=== PATIENT | female | born 1965 | race Hispanic/Latino ===

== ENCOUNTER 2017-09-16 07:19 | Observation (INO) | payer SELFPAY ==
[2017-09-16 07:45] LABS: #Basophils 0.1 thou/uL (0.0-0.2); #Eosinphils 0.1 thou/uL (0.0-0.7); #Lymphocytes 2.4 thou/uL (1.20-3.40); #Monocytes 0.7 thou/uL (0.11-0.59); #Neutrophils 4.9 thou/uL (1.40-6.50); %Basophils 1.3 % (0.0-1.0); %Eosinophils 0.7 % (0.0-10.0); %Lymphocytes 29.6 % (21.0-51.0); %Monocytes 8.7 % (0.0-10.0); %Neutrophils 59.8 % (42.0-75.0); Hemoglobin 16.5 g/dL (12.0-16.0); Mean Corpuscular HGB CONC 33.6 g/dL (32.0-36.0); Mean Corpuscular Hemoglobin 34.2 pg (27.0-31.0); Mean Platelet Volume 8.1 fL (7.4-10.4); Platelet Count 182 thou/uL (130-400); RBC Distribution Width 12.1 % (11.5-14.5); Red Blood Cell (RBC) Count 4.82 mill/uL (4.20-5.40); White Blood Cell (WBC) Count 8.2 thou/uL (4.8-10.8)
[2017-09-16 08:02] LABS: ALT (SGPT) 25 U/L (8-55); AST (SGOT) 40 U/L (5-34); Albumin 5.1 g/dL (3.5-5.0); Alkaline Phosphatase 103 U/L (40-150); Anion Gap 17 mmol/L (10-20); BUN (Urea Nitrogen) 6 mg/dL (9.8-20.1); CK (CPK) 31 U/L (29-168); Calc. Creatinine Clearance 0 mL/min (70-130); Calcium 10.8 mg/dL (7.8-10.44); Carbon Dioxide 24 mmol/L (22-29); Chloride 93 mmol/L (98-107); Estimated GFR-MDRD 72; Globulin 4.2 g/dL (2.4-3.5); Glucose 148 mg/dL (70-105); Protein, Total 9.3 g/dL (6.0-8.3); Sodium 131 mmol/L (136-145)
[2017-09-16 08:06] LABS: CKMB 1.3 ng/mL (0-6.6); Troponin I Less than 0.010 ng/mL (< 0.028)
[2017-09-16] MEDS ORDERED: Potassium Chloride 20 MEQ TAB ONE (09:37)
--- NOTE | 2017-09-16 09:44 | RAD ---
FRONTAL VIEW CHEST: COMPARISON: 05/20/11. INDICATION: Chest pain. FINDINGS: The lungs are clear. No effusion or pneumothorax. Cardiac silhouette is normal in size. IMPRESSION: No focal consolidation. POS: [facility]
[2017-09-16 10:10] LABS: Magnesium 1.8 mg/dL (1.6-2.6); Phosphorus 3.6 mg/dL (2.3-4.7)
[2017-09-16 11:10] LABS: Troponin I 0.021 ng/mL (< 0.028)
[2017-09-16 12:38] VITALS: BMI 23.8
[2017-09-16] MEDS ORDERED: Acetaminophen 325 MG TAB PO PRN (12:50)
[2017-09-16] MEDS ORDERED: Nitroglycerin 0.4 MG TAB (25 Tab Bottle) PO PRN (12:50)
[2017-09-16] MEDS ORDERED: traMADol HCl 50 MG TAB PO PRN (12:53)
[2017-09-16] MEDS ORDERED: Metoprolol Tartrate 25 MG TAB PO SCH (13:15)
[2017-09-16] MEDS ORDERED: Lidocaine 5% Patch TD SCH (13:30)
--- NOTE | 2017-09-16 14:26 | HP ---
DATE OF ADMISSION: 09/16/2017 PRIMARY CARE PROVIDER: None. CHIEF COMPLAINT: "My arm is hurting a lot." HISTORY OF PRESENT ILLNESS: This is a 52-year-old female with history of gestational hypertension, and a presumptive diagnosis in 2012 with hospitalization for Crohn's disease, who presents to the emergency room with the above complaint. The patient reports, over the past 2-3 days, that she has had left-sided neck and arm pain that has been constant and sharp that starts up at the left side of her neck and radiate down her left arm, and in addition, it has a throbbing quality. This morning it affected the left side of her chest , her back as well as worsening of some known right chronic hip pain. She describes the chest pain as pressure when she pushes down on it or when she is lying flat and all the symptoms are worse with twisting or turning to the side. She reports last night was pretty bad, and states that, this morning around 7 , she could not stand it anymore and presented to the emergency room. She denies any shortness of breath, nausea, vomiting, or abdominal pain. She does have some nausea now, but states over the past 2-3 days this has not been present. Aside from changing positions or direct palpation, she denies any other worsening factors, and has had some relief with taking ibuprofen, Aleve, and another [id number] medicine called pain free. The patient reports a history of similar symptoms in the past that have been intermittent; however, none this severe. These symptoms have not been evaluated in the past. She has been away from health care for at least 3 years due to lack of insurance. In the emergency room, the patient evaluated and received aspirin 324 mg, K-Dur 40 mEq, morphine 4 mg, and 500 mL of normal saline and hospitalist called for admission. ALLERGIES: No known drug allergies. CURRENT MEDICATIONS: 1. Ibuprofen as needed. 2. Aleve as needed. 3. [place] 3 occasionally. 4. Nexium 2 tablets averaging every 3 days. 5. [id number] sleeping medicine. PAST MEDICAL HISTORY: 1. Gestational hypertension. Patient denies any diagnosis or treatment outside of . 2. Presumptive diagnosis of Crohn's disease back in 2012, but the patient reports this diagnosis was never established. 3. Chronic right hip pain with history of hip replacement. 4. Decreased mobility secondary to above. PAST SURGICAL HISTORY: Right hip replacement. SOCIAL HISTORY: The patient lives with her 2 daughters, Lisbet and Arianne. She denies any tobacco. She averages alcohol a 6-pack of beer every 3-4 times per week. FAMILY HISTORY: Significant for a brother with coronary disease, who had a bypass at age 55; diabetes; hypertension. REVIEW OF SYSTEMS: Positive for GERD, for which she takes Nexium, depressed mood due to losing a daughter 3 years ago on a fire, worry and difficulty sleeping, bright red blood in her stool and dark black stool, palpitations today in the emergency room, hot flashes, unintentional weight loss of 12 pounds over the past few months, difficulty with her mobility secondary to pain. It is negative for syncope, vomiting, abdominal pain. All remaining review of systems are reviewed and negative. PHYSICAL EXAMINATION: VITAL SIGNS: Her blood pressure 162/109, pulse 113, respirations 20, temperature 98.8, saturation 97% on room air. GENERAL: Awake, alert, responsive, in no apparent distress, able to speak in full sentences. HEENT: Pupils are equal, round, reactive to light. Oral mucosa is pink and moist. NECK: Supple, nontender. Her thyroid feels slightly enlarged, no palpable nodules. HEART: Normal S1 and S2, regular rate and rhythm, no audible murmurs. ABDOMEN: Soft with present bowel sounds. Nontender, nondistended. LUNGS: Clear to auscultation bilateral with good air movement. EXTREMITIES: No clubbing, cyanosis, or edema. VASCULAR: 2+ PT pulses bilateral, 2+ DP pulse on the left. No palpable DP pulse on the right. SKIN: No visible rashes. NEUROLOGIC: Moves arms and legs equally. No focal deficits. PSYCHIATRIC: The patient tearful when discussing the loss of her daughter, euthymic, linear, logical, goal directed thought process, and appears stated age. MUSCULOSKELETAL: Tenderness to palpation along the left side of the chest wall without palpable defect, along the left trapezius muscle, along the proximal humerus as well as the left biceps, all without palpable defect. LABORATORY DATA: Labs reviewed. 1. CBC: 8.2, 16.5, 49.1, 182. 2. Renal panel: 131, 3.0, 93, 24, 6, 0.83, 148. 3. Hemoglobin A1c of 5. 4. Calcium 10.8. 5. AST 40, ALT 25, alkaline phosphatase 103, total protein 9.3, albumin 5.1. 6. EKG is personally reviewed, sinus rhythm, normal axis, LVH, no ST changes. QTc interval is 475 7. Chest x-ray is personally reviewed, no acute changes. 8. Troponin less than 0.01 and 0.021. ASSESSMENT: 1. Arm, neck, and chest pain that is atypical in nature and has a reproducible component with it, in a patient with elevated blood pressure, family history of early heart disease. 2. Elevated blood pressures and tachycardia of unknown duration. 3. Change in stool, including dark black stool as well as bright red blood per rectum in a patient who is currently on nonsteroidal antinflammatory drugs for both relief of this pain and chronic pain. 4. Prolonged QT interval 5. Chronic right hip pain. 6. Gastroesophageal reflux disease, not optimally controlled. 7. Mood changes, insomnia, and worry. 8. Hyponatremia, mild, unknown if new or baseline. 9. Hypokalemia. 10. Hypercalcemia. 11. Elevated hemoglobin. 12. Elevated protein levels. 13. Regular alcohol use. PLAN: 1. Observation status in the hospital. 2. We will obtain a third troponin, monitor on telemetry, check lipids in the morning. Holding on further aspirin for now given the reported change in her stool, which is concerning for GI bleed. Will start low dose metoprolol to manage heart rate and blood pressure - this will need to be titrated. As I'm uncertain of the duration of elevated blood pressure, want to avoid any significant lowering. Also check TSH. 3. GI consultation and evaluation holding NSAIDs and liquid diet, as I am most concerned about GI bleed per the reported change in her stool. 4. Recheck electrolytes in the morning, patient appears euvolemic. We will hold on any further IV fluids for now. 5. Discussed with patient the need for regular health care, as she has been away from healthcare for the past 3 years. Discussed [facility] as well as [facility] clinics that may be able to help her and the issues that are not currently being addressed, which are the elevated calcium and protein levels, the elevated hemoglobin levels, discussion about mood symptoms and treatment for this. 6. We will obtain an x-ray of her left shoulder. Because of the back complaints, we will also obtain a D-dimer. 7. Treating the pain with Lidoderm patches to the areas that are most painful in her neck and arm, and we will also order tramadol, which has worked for her in the past and morphine p.r.n. 8. Start BID ppi. 9. Monitor for signs/symptoms of alcohol withdrawal. 10. Avoid medications that can prolong QT interval. 11. Deep venous thrombosis prophylaxis. The patient is ambulatory. We will have sequential compression devices. The patient will also need evaluation in the outpatient setting for the unintentional weight loss, in addition to the lack of a right dorsalis pedis pulse (posteroir tibialis is palpable). 12. Gastrointestinal prophylaxis. We will have her on b.i.d. PPI. 13. Code status is FULL and surrogate decision makers are her daughters. 14. I reviewed the plan of care with the patient, in addition holding on a cardiac evaluation as the GI evaluation is most pressing given the atypical nature of her chest pain and the negative troponins. She is aware that the cardiac evaluation may occur in the hospital or may need to be followed up in the outpatient setting, to be determined. She also is aware of the need for outpatient care for the multiple issues listed above. 15. No questions or further needs at end of evaluation. KAYLA
[2017-09-16 14:28] LABS: Troponin I Less than 0.010 ng/mL (< 0.028)
--- NOTE | 2017-09-16 15:28 | RAD ---
THREE VIEWS LEFT SHOULDER: CLINICAL HISTORY: Left shoulder pain. 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 No fracture or dislocation. IMPRESSION: No acute osseous abnormality of the left shoulder. POS: [facility]
[2017-09-16] MEDS ORDERED: Lorazepam 2 MG/ML VIAL SLOW IVP PRN (18:14)
--- NOTE | 2017-09-16 18:14 | PDOC.EVN ---
Event Note - Event Note Event Note: Pt c/o nausea with a prolonged QT interval - hold on zofran and phenergan. Reviewed reglan and contraindicated with GI bleed. Will order very low dose ativan to see if this helps. Lidocaine patches not helping, now with right arm and neck pain - will d/c patches, request heating pad, and order neck xray. Exam - ttp along the right trapezius, upper arm and biceps without palpable defects. Ttp along the right rhomboids and serratus anterior that reproduces pain. Lungs ctab with good air movement, heart normal s1/s2 without audible murmurs. Discussed plan of care with patient and RN, no questions or further needs at end of eval.
[2017-09-16] MEDS ORDERED: Folic Acid 1 MG TAB PO SCH (18:15)
[2017-09-16] MEDS ORDERED: Multivitamin W/ Minerals 1 TAB PO SCH (18:15)
[2017-09-16] MEDS ORDERED: GoLYTELY 4,000 ml Bottle PO SCH (18:30)
[2017-09-16] MEDS: traMADol HCl 50 MG TAB PO PRN (18:35)
--- NOTE | 2017-09-16 18:53 | RAD ---
3 VIEWS CERVICAL SPINE; Date: 09/16/17 COMPARISON: None. HISTORY: Bilateral arm and neck pain. FINDINGS: Three views of the cervical spine show normal height and alignment of the vertebral bodies and interv ertebral discs without fracture or subluxation. No significant degenerative changes are seen. No prev ertebral soft tissue swelling is seen. IMPRESSION: No significant osseous abnormality. POS: [facility]
[2017-09-16] MEDS: Metoprolol Tartrate 25 MG TAB PO SCH (20:23)
[2017-09-16] MEDS ORDERED: Lidocaine Patch Removal TOP SCH (21:00)
--- NOTE | 2017-09-16 21:11 | CON ---
DATE OF CONSULTATION: 09/16/2017 CHIEF COMPLAINT: Chest pain. HISTORY OF PRESENT ILLNESS: Ms. Bucio is a 52-year-old woman who presented to the emergency room w ith chest pain. She initially started more with sharp pain in her left upper chest that radiated to her left arm and the pain has moved more towards her right arm. This afternoon, the pain also radiat es through to her right lower back. She has had nausea with it, but no vomiting. She has been evalu ated by the ER and hospitalist physicians and ruled out for myocardial infarction by troponins. The hospitalist felt that this is very unlikely cardiovascular and consulted GI for further evaluation. The patient reports black stools for the last 3 days. She has one black stool to 2 black stools per day, which are formed. She has also had intermittent red blood mixed with the stool that will turn t o water red around once per month. She gets heartburn a couple times per week. She takes 2 over-the -counter Nexium every 3 days, which in general controls her heartburn pretty well. She tends to get more nocturnal heartburn. She takes ibuprofen 800 mg at a time once or twice per day for chronic hip pain. PAST MEDICAL HISTORY: Gastroesophageal reflux. PAST SURGICAL HISTORY: Right hip replacement and cautery of nosebleed. FAMILY HISTORY: Negative for GI malignancy. She had a brother who had bypass surgery at age 55. SOCIAL HISTORY: She drinks 2-6 beers most days. No smoking for the last year. She smoked intermitt ently for 30 years prior to that. No drugs. ALLERGIES: No known drug allergies. MEDICATIONS PRIOR TO ADMISSION: Ibuprofen once or twice daily 800 mg, Nexium 2 tablets every few day s. She takes omega 3 occasionally. REVIEW OF SYSTEMS: Negative x10 systems reviewed except as stated in the history of present illness. PHYSICAL EXAMINATION: VITAL SIGNS: Temperature 98.1, pulse 74, blood pressure 140/97. GENERAL: She is in no acute distress, alert and oriented x3. HEENT: Eyes have no scleral icterus. Oropharynx is clear without lesions. NECK: No cervical or supraclavicular lymphadenopathy. LUNGS: Clear to auscultation bilaterally. HEART: Regular rate and rhythm without murmur. ABDOMEN: Soft. She is tender in the right upper quadrant with inspiration. This reproduces the asad n that radiates through to her back and up towards her chest. Her abdomen is otherwise soft and nont dave. Bowel sounds are present. EXTREMITIES: No lower extremity edema. LABORATORY DATA: TSH 1.9, hemoglobin A1c 5, creatinine 0.83, bilirubin 1, AST 40, ALT 25, alkaline p hosphatase 103, albumin 5.1. IMPRESSION: 1. Chest pain that radiates through to her back associated with right upper quadrant tenderness that reproduces pain on exam. This pain seems to be most likely gallbladder in origin. 2. Gastrointestinal bleeding history. She has had black stools for the last 3 days and also reports red bloody stools around once per month. She takes ibuprofen 800 mg once or twice daily. We will r ule out peptic ulcer disease. She has never had a colonoscopy. Rule out inflammatory bowel disease or neoplastic process. 3. Alcohol abuse. She drinks 2-6 beers most days. Her AST is elevated. RECOMMENDATIONS: 1. We will prep with GoLYTELY this evening. Plan EGD and colonoscopy tomorrow to evaluate bleeding. Her hemoglobin is normal at 16.5. Her white count is normal. 2. Perform ultrasound of the gallbladder in the morning prior to endoscopy. She has had beef broth and ice cream couple hours ago, so I will not perform the ultrasound this evening.
[2017-09-17] MEDS: traMADol HCl 50 MG TAB PO PRN ×3 (02:54→14:29)
[2017-09-17 05:04] LABS: #Basophils 0.1 thou/uL (0.0-0.2); #Eosinphils 0.1 thou/uL (0.0-0.7); #Lymphocytes 2.4 thou/uL (1.20-3.40); #Monocytes 0.7 thou/uL (0.11-0.59); #Neutrophils 4.9 thou/uL (1.40-6.50); %Basophils 0.8 % (0.0-1.0); %Eosinophils 0.8 % (0.0-10.0); %Lymphocytes 29.4 % (21.0-51.0); %Neutrophils 60.9 % (42.0-75.0); Hemoglobin 15.9 g/dL (12.0-16.0); Mean Corpuscular HGB CONC 35.1 g/dL (32.0-36.0); Mean Corpuscular Hemoglobin 36.3 pg (27.0-31.0); Mean Platelet Volume 8.4 fL (7.4-10.4); Platelet Count 177 thou/uL (130-400); RBC Distribution Width 12.1 % (11.5-14.5); Red Blood Cell (RBC) Count 4.38 mill/uL (4.20-5.40); White Blood Cell (WBC) Count 8.1 thou/uL (4.8-10.8)
[2017-09-17 05:26] LABS: Cardiac Risk 2.7 (Less than 4.5)
[2017-09-17] MEDS ORDERED: Ondansetron HCl/PF 4 MG/2 ML Vial SLOW IVP PRN (08:32)
[2017-09-17] MEDS: Metoprolol Tartrate 25 MG TAB PO SCH (08:41)
[2017-09-17] MEDS ORDERED: Folic Acid 1 MG TAB PO SCH (09:00)
[2017-09-17] MEDS ORDERED: Multivitamin W/ Minerals 1 TAB PO SCH (09:00)
[2017-09-17] MEDS ORDERED: Lidocaine 5% Patch TD SCH (09:00)
--- NOTE | 2017-09-17 09:20 | ULT ---
RIGHT UPPER QUADRANT ULTRASOUND: HISTORY: A 52-year-old female with a history of right upper quadrant tenderness and pain. FINDINGS: Coarse, increased liver echogenicity, consistent with a nonspecific, diffuse hepatic parenchymal proc ess. No overt gallstones or pericholecystic fluid. Common bile duct 0.3 cm. No intrahepatic ductal dilatation. The visualized pancreas and right kidney are unremarkable. IMPRESSION: Coarse liver echogenicity, evidence for fatty change or other nonspecific diffuse hepatic parenchymal process, stable from 05/20/2011. No evidence of gallstones or ductal dilatation. POS: [facility]
[2017-09-17] MEDS ORDERED: Lorazepam 2 MG/ML VIAL SLOW IVP PRN (10:23)
[2017-09-17] MEDS ORDERED: HYDROmorphone 2 MG/ML VIAL SLOW IVP PRN (12:18)
[2017-09-17] MEDS ORDERED: Meperidine HCl/PF 25 MG/ML VIAL SLOW IVP PRN (12:18)
[2017-09-17] MEDS ORDERED: Ondansetron HCl/PF 4 MG/2 ML Vial IVP PRN (12:18)
[2017-09-17] MEDS ORDERED: Promethazine HCl 25 MG/ML VIAL SLOW IVP PRN (12:18)
[2017-09-17] MEDS ORDERED: Morphine Sulfate 2 MG/ML SYRINGE SLOW IVP PRN (12:18)
[2017-09-17] MEDS ORDERED: Lidocaine 1% PF 5 ML VIAL ONE (15:02)
[2017-09-17] MEDS ORDERED: PROPOFOL 200 MG/20 ML VIAL ONE (15:02)
[2017-09-17 15:41] VITALS: BP 164/86; TEMP 97.7
--- NOTE | 2017-09-17 17:28 | OP ---
DATE OF PROCEDURE: 09/17/2017 PROCEDURE PERFORMED: Esophagogastroduodenoscopy with biopsy and colonoscopy with snare polypectomy. PREOPERATIVE DIAGNOSIS: Chest pain and gastroesophageal reflux and melena and hematochezia. OPERATIVE NOTE: Informed consent was obtained from the patient. She was sedated with total intraven ous anesthesia. The bite block was placed and the endoscope was advanced easily to the second portio n of the duodenum and retroflexion was performed in the stomach. The esophagus showed salmon-colored mucosa suggestive of Haddad's esophagus from 36-40 cm. Biopsies were obtained in four quadrants at 37 and 39 cm. The GE junction was normal. The stomach was normal including retroflexed views. The pylorus and first and second portions of the duodenum were normal. The air was suctioned from the s tomach. The patient was turned around. Rectal exam was performed and was normal. The preparation q uality was good. The colonoscope was advanced to the terminal ileum without difficulty. The mucosa of the terminal ileum was normal. The ileocecal valve and appendiceal orifice were clearly identifie d. There was mild to moderate diverticulosis of the sigmoid and descending colon. Two polyps measuring 5 mm were removed from the descending colon by cold snare polypectomy. The yeyo maira of the colonic mucosa was normal. Retroflexed views in the rectum were unremarkable. IMPRESSION: 1. [place]-colored mucosa in the distal esophagus from 36-40 cm suggestive of Haddad's esophagus. B iopsies obtained to confirm. 2. Otherwise normal esophagogastroduodenoscopy. 3. Diverticulosis of the left colon. 4. Two polyps measuring 5 mm were removed from the descending colon by cold snare. 5. Otherwise normal colonoscopy. 6. The intermittent hematochezia occurs around once per month is consistent with mild hemorrhoidal b leeding. The reported black stools over the last 3 days were unlikely a true melena. Her hemoglobin remains normal at 15.9. There is no evidence of a bleeding source by this exam. 7. The cause of her chest pain may be reflux related. 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 Ultrasound of the gallbladder was negative for gallstones. If she has persistent pain that locali zes more to the right upper quadrant and is affected by eating, then consider HIDA scan. With atypic al symptoms which are primarily chest pain at this point and left shoulder pain, I will hold off orde ring a HIDA scan without more compelling gallbladder-type symptoms. RECOMMENDATIONS: 1. Await histopathology. 2. Repeat EGD in 1 year if Haddad's esophagus is confirmed. 3. Repeat colonoscopy in 5 years if either polyp is an adenoma. Repeat in 10 years if both polyps a re hyperplastic and repeat in 3 years if either polyp has a villous component. 4. Proton pump inhibitor daily every day. 5. I will sign off for now. Please call if GI can be of service.
== END 2017-09-17 19:05 | disposition home or self-care (01) ==
LOC: ERS 07:19 → 2SW 10:48
PROVIDERS: ADMIT Internal Medicine; ATTEND Internal Medicine
PROC: 0DBM8ZX Excision of Descending Colon, Via Natural or Artificial Opening Endoscopic, Diagnostic (ICD-10-PCS; principal; 2017-09-17)
PROC: 0DB58ZX Excision of Esophagus, Via Natural or Artificial Opening Endoscopic, Diagnostic (ICD-10-PCS; 2017-09-17)
DX: D12.4 Benign neoplasm of descending colon (principal); K22.70 Barrett's esophagus without dysplasia; K21.9 Gastro-esophageal reflux disease without esophagitis; I10 Essential (primary) hypertension; E87.1 Hypo-osmolality and hyponatremia; E87.6 Hypokalemia; E83.52 Hypercalcemia; R03.0 Elevated blood-pressure reading, without diagnosis of hypertension; Z79.899 Other long term (current) drug therapy
CPT/HCPCS: 36415; 71045; 72040; 76705; 80053; 80061; 82550; 82553; 83036; 83735; 84100; 84443; 84484; 85025; 85379; 88305; 88312; 88313; 93005; 94760; 96361; 96374; 96375; G0378; J2001; J2060; J2270; J2405; J2704

== ENCOUNTER 2017-10-02 13:50 | Inpatient (IN) | payer SELFPAY ==
[2017-10-02] MEDS ORDERED: Ondansetron HCl/PF 4 MG/2 ML Vial ONE ×3 (14:04→20:43)
[2017-10-02 14:32] LABS: #Basophils 0.1 thou/uL (0.0-0.2); #Lymphocytes 0.8 thou/uL (1.20-3.40); #Monocytes 0.5 thou/uL (0.11-0.59); #Neutrophils 9.6 thou/uL (1.40-6.50); %Basophils 0.5 % (0.0-1.0); %Eosinophils 0.2 % (0.0-10.0); %Lymphocytes 6.9 % (21.0-51.0); %Monocytes 4.8 % (0.0-10.0); %Neutrophils 87.7 % (42.0-75.0); Mean Corpuscular Hemoglobin 35.6 pg (27.0-31.0); Mean Platelet Volume 8.7 fL (7.4-10.4); Platelet Count 128 thou/uL (130-400); RBC Distribution Width 11.7 % (11.5-14.5); Red Blood Cell (RBC) Count 4.48 mill/uL (4.20-5.40)
[2017-10-02 14:51] LABS: ALT (SGPT) 33 U/L (8-55); AST (SGOT) 65 U/L (5-34); Albumin 5.2 g/dL (3.5-5.0); Alkaline Phosphatase 107 U/L (40-150); Anion Gap 26 mmol/L (10-20); BUN (Urea Nitrogen) 6 mg/dL (9.8-20.1); Bilirubin, Total 1.9 mg/dL (0.2-1.2); Calc. Creatinine Clearance 0 mL/min (70-130); Calcium 10.8 mg/dL (7.8-10.44); Carbon Dioxide 16 mmol/L (22-29); Chloride 100 mmol/L (98-107); Estimated GFR-MDRD 62; Globulin 4.4 g/dL (2.4-3.5); Glucose 217 mg/dL (70-105); Potassium 3.2 mmol/L (3.5-5.1); Protein, Total 9.6 g/dL (6.0-8.3); Sodium 139 mmol/L (136-145)
[2017-10-02] MEDS ORDERED: ISOVUE-370 76%-LOCM 1 ML ONE (14:56)
[2017-10-02 15:21] LABS: CK (CPK) 195 U/L (29-168); Lipase 23 U/L (8-78)
--- NOTE | 2017-10-02 15:24 | RAD ---
FRONTAL VIEW CHEST: Indication: Chest pain. Comparison: 09-16-17 FINDINGS: The lungs are clear. No free air beneath the hemidiaphragms. Cardiac silhouette is normal in size. Os seous structures are intact. IMPRESSION: No focal consolidation. POS: [facility]
[2017-10-02 15:25] LABS: CKMB 4.1 ng/mL (0-6.6); Troponin I Less than 0.010 ng/mL (< 0.028)
[2017-10-02] MEDS ORDERED: Lorazepam 2 MG/ML VIAL ONE ×2 (15:27→22:42)
[2017-10-02] MEDS ORDERED: hydrALAZINE 20 MG/ML VIAL ONE (15:28)
[2017-10-02] MEDS ORDERED: Nitroglycerin 0.4 MG TAB (25 Tab Bottle) ONE ×2 (15:28)
[2017-10-02] MEDS ORDERED: Morphine 4 MG/ML VIAL ONE (16:58)
[2017-10-02] MEDS ORDERED: Promethazine HCl 25 MG SUPP ONE (17:47)
[2017-10-02] MEDS ORDERED: Nitroglycerin 2% Ointment 1 INCH/1 GM Packet ONE (18:32)
[2017-10-02 20:30] LABS: Bilirubin Negative (Negative); Blood, Urine Negative (Negative); Glucose, Urine (Dipstick) Negative (Negative); Leukocyte Negative (Negative); Nitrite Negative (Negative); Protein, Urine (Dipstick) 100 mg/dL (Neg-Trace); Specific Gravity, Urine 1.025 (1.005-1.030); Urobilinogen 0.2 mg/dL (0.2-1.0)
[2017-10-02 20:31] LABS: Clarity CLEAR (Clear)
[2017-10-02 20:32] LABS: Bacteria/HPF None Seen HPF (None Seen); Hyaline Casts/LPF NONE SEEN LPF (0-3 Hyaline); RBC/HPF None Seen HPF (0-3); Squamous Epithelial 0-3 HPF (0-3); WBC/HPF None Seen HPF (0-3)
[2017-10-02] MEDS ORDERED: HYDROcodone/Acetaminophen 5/325 mg Tablet ONE (20:43)
[2017-10-02 22:07] LABS: INR-International Normal Ratio 1.2; Prothrombin Time 15.2 SEC (12.0-14.7)
[2017-10-02 22:08] LABS: PTT 26.9 SEC (22.9-36.1)
--- NOTE | 2017-10-02 22:16 | CT ---
CT ANGIOGRAM OF THE CHEST 10/02/16 HISTORY: Tachycardia, dizziness. Left upper chest pain. COMPARISON: None. TECHNIQUE: CT angiogram of the chest is performed in the axial plane. Three dimensional reformatted images are s ubmitted for interpretation. FINDINGS: The trachea and central bronchi are patent. No consolidation. No pleural effusion. No pneumothorax. No mediastinal mass, lymphadenopathy, or hematoma. Heart size is within normal limits. No significant pericardial fluid. The thoracic aorta and upper abdominal aorta have an overall normal caliber. No p eriaortic fat stranding. There is nonspecific enhancement and fluid in the thoracic esophagus. Noneme rgent esophagram or endoscopy is recommended. The visualized upper solid organs are unremarkable. The re is a hypodensity in the mid portion of the pancreatic body measuring 5 mm. There do appear to be s ome splenic varices as well as varies in the left hemiabdomen. There is hypoattenuation of liver due to hepatic steatosis. Adequate contrast opacification of the pulmonary arterial system through the level of the segmental a rteries. No filling defect to suggest thromboembolism. IMPRESSION: 1. No evidence of pulmonary artery embolism to the level of the segmental arteries. 2. Hepatic steatosis. 3. 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 Correlate for portal hypertension . 4. Hypodensity in the mid body of the pancreas measuring 5 mm. Continued surveillance with short term six month follow up imaging utilizing pancreas protocol is recommended. 5. Enhancement of the esophageal mucosa and fluid in the thoracic esophagus. Nonemergent endosco py or esophagram is recommended. POS: [facility]
[2017-10-02] MEDS ORDERED: Lorazepam 2 MG/ML VIAL SLOW IVP PRN (22:44)
[2017-10-02] MEDS ORDERED: Acetaminophen 325 MG TAB PO PRN (23:13)
[2017-10-02] MEDS ORDERED: Senokot 8.6 MG TAB PO PRN (23:13)
[2017-10-02] MEDS ORDERED: Potassium Chloride 20 MEQ in Premix Bag 1 BAG IVPB SCH (23:15)
[2017-10-02] MEDS ORDERED: Ondansetron HCl/PF 4 MG/2 ML Vial IVP PRN (23:15)
[2017-10-02 23:58] LABS: CKMB 3.9 ng/mL (0-6.6); Troponin I 0.015 ng/mL (< 0.028)
[2017-10-03 00:21] LABS: ALT (SGPT) 22 U/L (8-55); AST (SGOT) 45 U/L (5-34); Albumin 4.1 g/dL (3.5-5.0); Alkaline Phosphatase 79 U/L (40-150); Anion Gap 17 mmol/L (10-20); BUN (Urea Nitrogen) 4 mg/dL (9.8-20.1); Bilirubin, Total 1.4 mg/dL (0.2-1.2); Calc. Creatinine Clearance 0 mL/min (70-130); Calcium 8.3 mg/dL (7.8-10.44); Carbon Dioxide 20 mmol/L (22-29); Chloride 103 mmol/L (98-107); Estimated GFR-MDRD Greater than 90; Globulin 3.1 g/dL (2.4-3.5); Glucose 124 mg/dL (70-105); Potassium 2.9 mmol/L (3.5-5.1); Protein, Total 7.2 g/dL (6.0-8.3); Sodium 137 mmol/L (136-145)
[2017-10-03] MEDS: NS 0.9% w/ 40 MEQ KCL 1,000 ML IV SCH ×3 (00:45→23:13)
[2017-10-03 02:00] VITALS: BMI 24.7
[2017-10-03] MEDS: traMADol HCl 50 MG TAB PO PRN ×4 (03:48→21:39)
[2017-10-03 05:42] LABS: ALT (SGPT) 22 U/L (8-55); AST (SGOT) 46 U/L (5-34); Albumin 4.3 g/dL (3.5-5.0); Alkaline Phosphatase 83 U/L (40-150); Anion Gap 14 mmol/L (10-20); BUN (Urea Nitrogen) Less than 4 mg/dL (9.8-20.1); Bilirubin, Total 1.5 mg/dL (0.2-1.2); Calc. Creatinine Clearance 96 mL/min (70-130); Calcium 8.8 mg/dL (7.8-10.44); Carbon Dioxide 24 mmol/L (22-29); Chloride 101 mmol/L (98-107); Estimated GFR-MDRD Greater than 90; Globulin 3.4 g/dL (2.4-3.5); Glucose 94 mg/dL (70-105); Protein, Total 7.7 g/dL (6.0-8.3); Sodium 136 mmol/L (136-145)
[2017-10-03 05:46] LABS: Potassium 2.9 mmol/L (3.5-5.1)
--- NOTE | 2017-10-03 06:00 | HP ---
CHIEF COMPLAINT: Nausea, vomiting, generalized weakness. HISTORY OF PRESENT ILLNESS: The patient is a 52-year-old female who just recently was discharged on 09/17/2017 after undergoing an EGD and a colonoscopy for possible melena. At this time, the EGD tootie cated salmon-colored mucosa in the distal esophagus suggestive of Haddad's esophagus. Biopsies were done, also the patient had diverticulosis in the left colon and two polyps measuring 5 mm were remov ed in the descending colon by cold snare. Otherwise, the colonoscopy was normal. Recommendations pe r GI were to repeat EGD in one year and also repeat colonoscopy in 5 years and to continue a PPI abisai y. However, the patient presents to the hospital today with complaints of left arm pain which she spencer d in her previous admission and also nausea and vomiting x1 day. Patient's who is at the bed side states that this is her 3rd year anniversary of her daughter passing away at this time of the ye ar, patient has been very depressed. She has not been eating very much or drinking anything since . Patient also states that she drinks heavily; however, yesterday she had only 2-3 beers. Patie nt stated that she woke up this morning, felt dizzy, felt that she was sweaty all over, felt hot and cold and then started having nausea and multiple bouts of emesis. The patient states that she did spencer ve some chest tightness, also denies any diarrhea or any severe abdominal pain. Patient states that she did not recall eating out anywhere. PAST MEDICAL HISTORY: 1. Gestational hypertension. 2. Patient was diagnosed with Crohn's disease back in 04/2012, but the patient reports this diagnosi s was never established. 3. Chronic right hip pain with a history of right hip replacement. PAST SURGICAL HISTORY: She has had a right hip replacement. SOCIAL HISTORY: The patient lives with her daughter and and she normally drinks about 6 pack of beer every 3-4 times a week; however, recently she has been drinking more given the fact that she has been very depressed recently. FAMILY HISTORY: Significant for a brother with coronary artery disease who had a bypass at the age o f 55 and diabetes and hypertension. REVIEW OF SYSTEMS: All negative except for the ones mentioned above in the HPI. PHYSICAL EXAMINATION: VITAL SIGNS: As of the following temperature of 97.7, heart rate of 70, 16, 98, 164/86. GENERAL: She is awake, alert, oriented x3. HEENT: Appears very dehydrated mucous membranes. Sclerae is nonicteric. CARDIOVASCULAR: S1, S2 present. Sinus tachycardia. No murmurs are heard. LUNGS: Clear to auscultation. Rhonchi and wheezes noted. ABDOMEN: Obese. Bowel sounds are present x2. She does have pain upon palpation around her right lo wer quadrant area and some epigastric area. EXTREMITIES: No edema. Pedal pulses are present x2. NEUROLOGIC: Neurological kelsey, no deficits noted. MUSCULOSKELETAL: She does have good range of motion in her left shoulder. There is no numbness or t ingling of her left shoulder and no pain upon palpation around the left shoulder joint area. LABORATORY DATA: As of the following; WBCs of 11.0, hemoglobin of 15.0, hematocrit 45.7, platelets o f 128. Chemistry: Sodium of 137, potassium of 3.2, anion gap of 26, BUN of 6, creatinine 0.94. Her lactic acid was 7.5, sugar of 217, calcium of 10.8. Her bilirubin total was 1.9, AST was 65, ALT wa s normal and her CK was 195. Troponin x1 was negative. Lipase was 23. Her PT was 15.2, INR was nor mal and D-dimer was slightly elevated. ASSESSMENT AND PLAN: The patient is a 52-year-old female who initially presented to the hospital wit h multiple complaints including nausea, vomiting and generalized weakness. 1. Gap metabolic acidosis, most likely secondary to starvation ketosis is a possibility. The patien t received 3 liters of normal saline and her repeat BNP resolves the anion gap. However, she does spencer ve some non-anion gap metabolic acidosis now. The patient has not been eating or drinking for the wv st 3 days per and this could be most likely secondary to starvation. 2. Sinus tachycardia. This is most likely secondary to patient's dehydration. 3. Lactic acidosis. This again could be secondary to dehydration. I do not believe at this time haylie walton has any acute infection going on. She does not appear toxic. Does not have leukocytosis. [facility] x-ray does not indicate any acute abnormalities and her urine appears pretty benign. 4. Alcohol use. Patient has been drinking a lot of alcohol. This could be possible withdrawal give n the fact that she was very hypertensive and very tachycardic. We will start patient on an ARNEL prot ocol. Also give her Ativan p.r.n. as needed. 5. Nausea, vomiting, and some abdominal pain, this could again all be secondary to dehydration versu s possible gallbladder etiology. The patient did have an abdominal x-ray done on 09/17/2017 which in dicated she had coarse liver echogenicity, evidence of fatty changes, but no evidence of gallstones o r ductal dilation was noted and the patient did have an EGD and colonoscopy which did not indicate an y significant etiology besides the Haddad's on the EGD. 6. Deep venous thrombosis prophylaxis. We will put patient on subcu heparin. 7. Depression. The patient appears to be very depressed per , given the fact that the patien t's daughter 3 years ago during this time and we will continue supportive therapy.
[2017-10-03] MEDS ORDERED: Potassium Chloride 20 MEQ TAB PO SCH (06:15)
[2017-10-03 06:31] LABS: #Lymphocytes 1.6 thou/uL (1.20-3.40); #Monocytes 0.7 thou/uL (0.11-0.59); #Neutrophils 5.1 thou/uL (1.40-6.50); %Basophils 0.3 % (0.0-1.0); %Eosinophils 0.1 % (0.0-10.0); %Lymphocytes 21.8 % (21.0-51.0); %Monocytes 8.9 % (0.0-10.0); %Neutrophils 68.8 % (42.0-75.0); Hemoglobin 13.5 g/dL (12.0-16.0); Mean Corpuscular HGB CONC 34.7 g/dL (32.0-36.0); Mean Corpuscular Hemoglobin 35.2 pg (27.0-31.0); Mean Platelet Volume 8.5 fL (7.4-10.4); PLT Morphology Comment Appears Decreased; Platelet Count 82 thou/uL (130-400); RBC Distribution Width 11.9 % (11.5-14.5); Red Blood Cell (RBC) Count 3.84 mill/uL (4.20-5.40); White Blood Cell (WBC) Count 7.5 thou/uL (4.8-10.8)
[2017-10-03] MEDS: Enoxaparin Sodium 40 MG/0.4 ML SYRINGE SC SCH (09:23)
[2017-10-03] MEDS: Famotidine/PF 20 mg/2ml Vial SLOW IVP SCH ×2 (09:44→21:34)
[2017-10-03] MEDS ORDERED: Magnesium Sulfate 2 GM in Sodium Chloride 0.9% 100 ML IVPB SCH (11:45)
[2017-10-03] MEDS ORDERED: cloNIDine 0.1 MG TAB PO PRN (11:47)
[2017-10-03 12:25] LABS: Anion Gap 12 mmol/L (10-20); BUN (Urea Nitrogen) Less than 4 mg/dL (9.8-20.1); Calc. Creatinine Clearance 105 mL/min (70-130); Calcium 8.6 mg/dL (7.8-10.44); Carbon Dioxide 22 mmol/L (22-29); Chloride 103 mmol/L (98-107); Estimated GFR-MDRD Greater than 90; Glucose 110 mg/dL (70-105); Potassium 3.4 mmol/L (3.5-5.1); Sodium 134 mmol/L (136-145)
[2017-10-03] MEDS ORDERED: Potassium Chloride 40 MEQ in Sodium Chloride 0.9% 250 ML 250 ML IVPB SCH (12:45)
--- NOTE | 2017-10-03 21:20 | PDOC.EVN ---
Event Note - Event Note Event Note: Record reviewed. Patient examined. Doing better already. Discussed her alcohol abuse. She does have follow up options where she can get some help with this. Stable otherwise. Replete the potassium.
[2017-10-03] MEDS: Metoprolol Tartrate 25 MG TAB PO SCH (21:34)
[2017-10-04] MEDS: traMADol HCl 50 MG TAB PO PRN ×2 (01:19→09:21)
[2017-10-04 05:56] LABS: Anion Gap 12 mmol/L (10-20); BUN (Urea Nitrogen) Less than 4 mg/dL (9.8-20.1); Calc. Creatinine Clearance 100 mL/min (70-130); Calcium 9.1 mg/dL (7.8-10.44); Carbon Dioxide 23 mmol/L (22-29); Chloride 104 mmol/L (98-107); Estimated GFR-MDRD Greater than 90; Glucose 91 mg/dL (70-105); Sodium 135 mmol/L (136-145)
[2017-10-04 05:57] LABS: #Basophils 0.1 thou/uL (0.0-0.2); #Eosinphils 0.1 thou/uL (0.0-0.7); #Lymphocytes 1.6 thou/uL (1.20-3.40); #Monocytes 0.4 thou/uL (0.11-0.59); %Basophils 1.1 % (0.0-1.0); %Lymphocytes 31.5 % (21.0-51.0); %Monocytes 6.9 % (0.0-10.0); %Neutrophils 58.4 % (42.0-75.0); Hemoglobin 13.3 g/dL (12.0-16.0); Mean Corpuscular HGB CONC 35.2 g/dL (32.0-36.0); Mean Corpuscular Hemoglobin 36.2 pg (27.0-31.0); Mean Platelet Volume 8.5 fL (7.4-10.4); Platelet Count 74 thou/uL (130-400); RBC Distribution Width 11.8 % (11.5-14.5); Red Blood Cell (RBC) Count 3.67 mill/uL (4.20-5.40); White Blood Cell (WBC) Count 5.2 thou/uL (4.8-10.8)
[2017-10-04] MEDS ORDERED: Folic Acid 1 MG TAB PO SCH (09:00)
[2017-10-04] MEDS: Enoxaparin Sodium 40 MG/0.4 ML SYRINGE SC SCH (09:20)
[2017-10-04] MEDS: Metoprolol Tartrate 25 MG TAB PO SCH (09:20)
[2017-10-04] MEDS: Famotidine/PF 20 mg/2ml Vial SLOW IVP SCH (11:08)
[2017-10-04] MEDS: NS 0.9% w/ 40 MEQ KCL 1,000 ML IV SCH (11:09)
[2017-10-04 12:42] VITALS: BP 164/101; TEMP 98.2
== END 2017-10-04 13:15 | disposition home or self-care (01) | DRG 642 ==
LOC: ERS 13:50 → 2NO 21:36
PROVIDERS: ADMIT Internal Medicine; ATTEND Internal Medicine
DX: E88.89 Other specified metabolic disorders (principal); E87.2 Acidosis; T73.0XXA Starvation, initial encounter; M25.561 Pain in right knee; G89.29 Other chronic pain; R00.0 Tachycardia, unspecified; F32.9 Major depressive disorder, single episode, unspecified; F10.10 Alcohol abuse, uncomplicated; Z96.641 Presence of right artificial hip joint; Z83.3 Family history of diabetes mellitus; Z82.49 Family history of ischemic heart disease and other diseases of the circulatory system
CPT/HCPCS: 36415; 71045; 71275; 80048; 80053; 81003; 81015; 82010; 82550; 82553; 83605; 83690; 83735; 83880; 84484; 85025; 85379; 85610; 85730; 87086; 93005; J0360; J1650; J2060; J2270; J2405; J3475; J3480; J7050; S0028

== ENCOUNTER 2019-01-12 01:13 | Emergency (ER) | payer OTHER, SELFPAY ==
[2019-01-12] MEDS ORDERED: Morphine 4 MG/ML VIAL ONE (01:38)
[2019-01-12] MEDS ORDERED: Ondansetron PF 4 MG/2 ML Vial ONE (01:38)
[2019-01-12 01:51] LABS: #Basophils 0.1 thou/uL (0.0-0.2); #Eosinphils 0.1 thou/uL (0.0-0.7); #Lymphocytes 2.2 thou/uL (1.20-3.40); #Monocytes 0.4 thou/uL (0.11-0.59); #Neutrophils 2.9 thou/uL (1.40-6.50); %Basophils 1.1 % (0.0-1.0); %Eosinophils 1.2 % (0.0-10.0); %Lymphocytes 38.7 % (21.0-51.0); %Monocytes 7.4 % (0.0-10.0); %Neutrophils 51.7 % (42.0-75.0); Hemoglobin 14.4 g/dL (12.0-16.0); Mean Corpuscular HGB CONC 35.3 g/dL (32.0-36.0); Mean Corpuscular Hemoglobin 36.7 pg (27.0-31.0); Mean Platelet Volume 9.2 fL (7.4-10.4); Platelet Count 151 thou/uL (130-400); RBC Distribution Width 11.7 % (11.5-14.5); Red Blood Cell (RBC) Count 3.93 mill/uL (4.20-5.40); White Blood Cell (WBC) Count 5.7 thou/uL (4.8-10.8)
[2019-01-12 02:12] LABS: ALT (SGPT) 34 U/L (8-55); AST (SGOT) 55 U/L (5-34); Albumin 4.6 g/dL (3.5-5.0); Alkaline Phosphatase 114 U/L (40-110); Anion Gap 18 mmol/L (10-20); BUN (Urea Nitrogen) 8 mg/dL (9.8-20.1); Bilirubin, Total 0.5 mg/dL (0.2-1.2); Calc. Creatinine Clearance 0 mL/min (70-130); Calcium 9.8 mg/dL (7.8-10.44); Carbon Dioxide 20 mmol/L (22-29); Chloride 109 mmol/L (98-107); Estimated GFR-MDRD 89; Globulin 3.7 g/dL (2.4-3.5); Glucose 127 mg/dL (70-105); Lipase 59 U/L (8-78); Potassium 3.5 mmol/L (3.5-5.1); Protein, Total 8.3 g/dL (6.0-8.3); Sodium 143 mmol/L (136-145)
--- NOTE | 2019-01-12 07:39 | RAD ---
XR Chest 1 View Portable History: Chest pain Comparison: Radiograph October 02, 2017 Findings: Lungs are clear. No pneumothorax or effusion. Cardiac silhouette and mediastinal contours a re within normal limits. No acute osseous normality. Impression: No acute intrathoracic abnormality
== END 2019-01-12 02:39 | disposition home or self-care (01) ==
LOC: ERS 01:13
DX: R10.11 Right upper quadrant pain (principal); I10 Essential (primary) hypertension; F32.9 Major depressive disorder, single episode, unspecified; W18.30XA Fall on same level, unspecified, initial encounter
CPT/HCPCS: 71045; 80053; 83690; 84484; 85025; 85379; 93005; 96361; 96374; 96375; J2270; J2405

== ENCOUNTER 2019-01-25 23:45 | Emergency (ER) | payer SELFPAY ==
[2019-01-26 00:31] LABS: #Basophils 0.1 thou/uL (0.0-0.2); #Eosinphils 0.1 thou/uL (0.0-0.7); #Lymphocytes 3.2 thou/uL (1.20-3.40); #Neutrophils 5.3 thou/uL (1.40-6.50); %Lymphocytes 32.8 % (21.0-51.0); %Monocytes 10.7 % (0.0-10.0); %Neutrophils 54.6 % (42.0-75.0); Hemoglobin 15.5 g/dL (12.0-16.0); Mean Corpuscular HGB CONC 35.3 g/dL (32.0-36.0); Mean Corpuscular Hemoglobin 36.3 pg (27.0-31.0); Mean Platelet Volume 8.8 fL (7.4-10.4); Platelet Count 182 thou/uL (130-400); RBC Distribution Width 11.6 % (11.5-14.5); Red Blood Cell (RBC) Count 4.27 mill/uL (4.20-5.40); White Blood Cell (WBC) Count 9.6 thou/uL (4.8-10.8)
[2019-01-26 00:48] LABS: Bacteria/HPF None Seen HPF (None Seen); Bilirubin Negative (Negative); Blood, Urine Negative (Negative); Clarity Clear (Clear); Glucose, Urine (Dipstick) Normal (Negative); Leukocyte 75 Leu/uL (Negative); Nitrite Negative (Negative); Protein, Urine (Dipstick) Negative (Neg-Trace); RBC/HPF 0-3 HPF (0-3); Squamous Epithelial 0-3 HPF (0-3); Urobilinogen Normal mg/dL (Less than 2); WBC/HPF 0-3 HPF (0-3)
[2019-01-26 00:48] LABS: ALT (SGPT) 38 U/L (8-55); AST (SGOT) 60 U/L (5-34); Albumin 4.7 g/dL (3.5-5.0); Alkaline Phosphatase 102 U/L (40-110); Anion Gap 16 mmol/L (10-20); BUN (Urea Nitrogen) 5 mg/dL (9.8-20.1); Bilirubin, Total 0.7 mg/dL (0.2-1.2); Calc. Creatinine Clearance 0 mL/min (70-130); Calcium 10.6 mg/dL (7.8-10.44); Carbon Dioxide 23 mmol/L (22-29); Chloride 100 mmol/L (98-107); Estimated GFR-MDRD 75; Globulin 3.7 g/dL (2.4-3.5); Glucose 150 mg/dL (70-105); Lipase 37 U/L (8-78); Protein, Total 8.4 g/dL (6.0-8.3); Sodium 136 mmol/L (136-145)
[2019-01-26] MEDS ORDERED: Ondansetron PF 4 MG/2 ML Vial ONE (01:06)
[2019-01-26] MEDS ORDERED: Morphine 4 MG/ML VIAL ONE (01:06)
[2019-01-26] MEDS ORDERED: Orphenadrine Citrate 60 MG/2 ML VIAL SLOW IVP SCH (01:15)
[2019-01-26] MEDS ORDERED: Orphenadrine Citrate 60 MG/2 ML VIAL IM SCH (01:30)
[2019-01-26 03:47] LABS: Troponin I 0.011 ng/mL (< 0.028)
--- NOTE | 2019-01-26 08:36 | CT ---
PRELIMINARY REPORT/[facility]/EMERGENCY AFTER HOURS PROCEDURE: PROCEDURE INFORMATION: Exam: CT Angiography Chest With Contrast Exam date and time: 01/26/2019 12:16 AM Clinical history: 53 years old, female; Patient HX: Er 9. F54 PT reports chest pain that started yest erday, described as pressure and neck pain diffusely that started today TECHNIQUE: Imaging protocol: Computed tomographic angiography of the chest with intravenous contrast. 3D renderi ng: MIP reconstructed images were created and reviewed. COMPARISON: No relevant prior studies available. FINDINGS: Pulmonary arteries: No pulmonary embolism. Aorta: Unremarkable. No aortic aneurysm. No aortic dissection. Lungs: Unremarkable. No consolidation. No masses. Pleural space: Unremarkable. No pneumothorax. No pleural effusion. Heart: Unremarkable. No cardiomegaly. No pericardial effusion. Mediastinum: Small-sized hiatal hernia. Lymph nodes: Unremarkable. No enlarged lymph nodes. Bones/joints: Unremarkable. No acute fracture. Soft tissues: Unremarkable. IMPRESSION: No pulmonary embolism. Thank you for allowing us to participate in the care of your patient. Dictated and Authenticated by: Chidi Marks MD 01/26/2019 12:36 AM Central Time ([place] & [place]) FINAL REPORT CT ANGIOGRAM OF THE CHEST: COMPARISON: 10/02/2017. HISTORY: Pain and dyspnea. TECHNIQUE: CT angiogram of the chest was performed in the axial plane. Three-dimensional reformatted images are submitted for interpretation. FINDINGS: This report is in agreement with the preliminary report by [facility]. No evidence of pulmonary artery embo lism at the level of the segmental arteries. POS: [facility]
[2019-01-26] MEDS ORDERED: Iopamidol-370 76% 500 ML 1 ML ONE (16:41)
== END 2019-01-26 04:35 | disposition home or self-care (01) ==
LOC: ERS 23:45
DX: R10.9 Unspecified abdominal pain (principal); R07.9 Chest pain, unspecified; F32.9 Major depressive disorder, single episode, unspecified; Z79.891 Long term (current) use of opiate analgesic; W17.89XA Other fall from one level to another, initial encounter
CPT/HCPCS: 36415; 71275; 80053; 81003; 81015; 83690; 84484; 85025; 93005; 96361; 96372; 96374; 96375; J2270; J2360; J2405; Q9967

== ENCOUNTER 2019-04-16 11:29 | Outpatient (CLI) | payer MEDICARE ==
--- NOTE | 2019-04-16 13:32 | MMO ---
Bilateral MAMMO Bilat Screen [facility]. CLINICAL HISTORY: Patient is 54 years old and is seen for screening. The patient has no family history of breast cancer. The patient has no personal history of cancer. VIEWS: The views performed were: bilateral craniocaudal with tomosynthesis and bilateral mediolateral oblique with tomosynthesis. FILMS COMPARED: The present examination has been compared to prior imaging studies performed at [facility] on 07/18/2006, 12/14/2015 and 01/20/2016. This study has been interpreted with the assistance of computer-aided detection. MAMMOGRAM FINDINGS: The breasts are heterogeneously dense, which could obscure a lesion on mammography. There are stable benign appearing calcifications seen in both breasts. There are also vascular calcifications. There are no suspicious masses, suspicious calcifications, or new areas of architectural distortion. IMPRESSION: THERE IS NO MAMMOGRAPHIC EVIDENCE OF MALIGNANCY. A ROUTINE FOLLOW-UP MAMMOGRAM IN 1 YEAR IS RECOMMENDED. THE RESULTS OF THIS EXAM WERE SENT TO THE PATIENT. ACR BI-RADS Category 2 - Benign finding MAMMOGRAPHY NOTE: 1. A negative mammogram report should not delay a biopsy if a dominant of clinically suspicious mass is present. 2. Approximately 10% to 15% of breast cancers are not detected by mammography. 3. Adenosis and dense breasts may obscure an underlying neoplasm. Reported by: EBER GONSALVES MD Electonically Signed: [id number]
== END 2019-04-16 11:30 | disposition home or self-care (01) ==
LOC: BICMAMMO 11:29
PROVIDERS: ATTEND Nurse Practitioner Family
DX: Z12.31 Encounter for screening mammogram for malignant neoplasm of breast (principal)
CPT/HCPCS: 77063; 77067

== ENCOUNTER 2019-05-21 12:48 | Outpatient (CLI) | payer MEDICARE ==
--- NOTE | 2019-05-21 14:27 | MRI ---
MRI of thecervical spine: 05/21/2019 COMPARISON:None available HISTORY:Neck pain and bilateral shoulder pain TECHNIQUE: Multiplanar multisequence MR imaging of thecervical spine without contrast Findings:The sagittal STIR imaging demonstrates no focal area of osseous marrow edema. The craniocervical junction, atlantoaxial interspace, and cervicothoracic junction grossly unremarkab le. C2-3: Mild facet and uncovertebral osteophyte formation on the left. No central canal or neural susana inal stenosis. C3-4: No significant central canal or neural foraminal stenosis. C4-5: No significant central canal or neural foraminal stenosis. C5-6: No significant central canal or neural foraminal stenosis. C6-7: No significant central canal or neural foraminal stenosis. C7-T1: No significant central canal or neural foraminal stenosis. No focal area of abnormal signal intensity identified within the cervical cord. IMPRESSION:No significant central canal or neural foraminal stenosis noted within the cervical spine.
== END 2019-05-21 12:49 | disposition home or self-care (01) ==
LOC: MRI 12:48
PROVIDERS: ATTEND Family Medicine
DX: M54.12 Radiculopathy, cervical region (principal)
CPT/HCPCS: 72141

== ENCOUNTER 2019-11-16 01:02 | Emergency (ER) | payer MEDICARE ==
[2019-11-16] MEDS ORDERED: Famotidine/PF 20 mg/2ml Vial ONE (01:11)
[2019-11-16] MEDS ORDERED: diphenhydrAMINE 50 MG/ML VIAL ONE (01:11)
[2019-11-16 01:34] LABS: #Basophils 0.1 thou/uL (0.0-0.2); #Eosinphils 0.1 thou/uL (0.0-0.7); #Lymphocytes 2.3 thou/uL (1.20-3.40); #Monocytes 0.2 thou/uL (0.11-0.59); #Neutrophils 2.5 thou/uL (1.40-6.50); %Eosinophils 1.4 % (0.0-10.0); %Lymphocytes 44.8 % (21.0-51.0); %Neutrophils 49.8 % (42.0-75.0); Hemoglobin 15.2 g/dL (12.0-16.0); Mean Corpuscular HGB CONC 35.9 g/dL (32.0-36.0); Mean Corpuscular Hemoglobin 38.1 pg (27.0-31.0); Mean Platelet Volume 8.6 fL (7.4-10.4); Platelet Count 145 thou/uL (130-400); Red Blood Cell (RBC) Count 3.98 mill/uL (4.20-5.40); White Blood Cell (WBC) Count 5.1 thou/uL (4.8-10.8)
[2019-11-16 01:56] LABS: ALT (SGPT) 27 U/L (8-55); AST (SGOT) 66 U/L (5-34); Albumin 4.5 g/dL (3.5-5.0); Alcohol 338 mg/dL (Less than 10); Alkaline Phosphatase 116 U/L (40-110); Anion Gap 17 mmol/L (10-20); BUN (Urea Nitrogen) 7 mg/dL (9.8-20.1); Bilirubin, Total 1.1 mg/dL (0.2-1.2); Calc. Creatinine Clearance 0 mL/min (70-130); Calcium 9.4 mg/dL (7.8-10.44); Carbon Dioxide 22 mmol/L (22-29); Chloride 103 mmol/L (98-107); Estimated GFR-MDRD Greater than 90; Globulin 3.9 g/dL (2.4-3.5); Glucose 120 mg/dL (70-105); Potassium 3.7 mmol/L (3.5-5.1); Protein, Total 8.4 g/dL (6.0-8.3); Sodium 138 mmol/L (136-145)
[2019-11-16 03:32] LABS: Troponin I 0.021 ng/mL (< 0.028)
--- NOTE | 2019-11-16 09:38 | RAD ---
PORTABLE CHEST 1 VIEW: DATE: 11/16/2019. TIME: 1:23 AM. HISTORY: Syncope. COMPARISON: 01/12/2019. FINDINGS: The heart size is normal. The lungs are expanded without focal areas of consolidation, pneumothorace s, or pleural effusions. IMPRESSION: No acute process. POS: OFF
== END 2019-11-16 04:00 | disposition home or self-care (01) ==
LOC: ERS 01:02
DX: L50.0 Allergic urticaria (principal); T36.0X5A Adverse effect of penicillins, initial encounter; F10.129 Alcohol abuse with intoxication, unspecified; Y90.8 Blood alcohol level of 240 mg/100 ml or more; R55 Syncope and collapse; F32.9 Major depressive disorder, single episode, unspecified
CPT/HCPCS: 36415; 71045; 80053; 80307; 82553; 84484; 85025; 93005; 96361; 96374; 96375; J1200; S0028

== ENCOUNTER 2020-08-17 08:37 | Outpatient (CLI) | payer MEDICARE | END 2020-08-17 08:38 | disposition home or self-care (01) | LOC: BICULT 08:37 | PROVIDERS: ATTEND Internal Medicine Gastroenterology | DX: R10.9 Unspecified abdominal pain (principal); R11.0 Nausea | CPT/HCPCS: 93975 ==

== ENCOUNTER 2021-02-07 12:48 | Emergency (ER) | payer MEDICARE ==
[~2021-02-07 12:48] MED LIST: Iopamidol-370 76% 500 ML 1 ML ONE
[2021-02-07 13:16] LABS: #Basophils 0.1 thou/uL (0.0-0.2); #Lymphocytes 1.9 thou/uL (1.20-3.40); #Monocytes 0.7 thou/uL (0.11-0.59); #Neutrophils 4.6 thou/uL (1.40-6.50); %Basophils 1.1 % (0.0-1.0); %Eosinophils 0.6 % (0.0-10.0); %Lymphocytes 26.4 % (21.0-51.0); %Monocytes 9.3 % (0.0-10.0); %Neutrophils 62.6 % (42.0-75.0); Hemoglobin 15.2 g/dL (12.0-16.0); Mean Corpuscular HGB CONC 35.4 g/dL (32.0-36.0); Mean Corpuscular Hemoglobin 38.1 pg (27.0-31.0); Mean Platelet Volume 7.6 fL (7.4-10.4); Platelet Count 199 thou/uL (130-400); RBC Distribution Width 11.8 % (11.5-14.5); Red Blood Cell (RBC) Count 3.99 mill/uL (4.20-5.40); White Blood Cell (WBC) Count 7.3 thou/uL (4.8-10.8)
[2021-02-07 13:35] LABS: MDiff Complete? YES; Macrocytosis SLIGHT = 6-15 cells (100X) (0-5/hpf); Platelet Morphology Comment Appears Adequate
[2021-02-07 13:39] LABS: CKMB 1.3 ng/mL (0-6.6); Troponin I 0.012 ng/mL (< 0.028)
[2021-02-07 13:41] LABS: ALT (SGPT) 39 U/L (8-55); AST (SGOT) 110 U/L (5-34); Albumin 4.2 g/dL (3.5-5.0); Alkaline Phosphatase 117 U/L (40-110); Anion Gap 15 mmol/L (10-20); BUN (Urea Nitrogen) 5 mg/dL (9.8-20.1); Bilirubin, Total 1.2 mg/dL (0.2-1.2); Calc. Creatinine Clearance 0 mL/min (70-130); Calcium 10.2 mg/dL (7.8-10.44); Carbon Dioxide 25 mmol/L (22-29); Chloride 98 mmol/L (98-107); Globulin 3.9 g/dL (2.4-3.5); Glucose 148 mg/dL (70-105); Potassium 3.6 mmol/L (3.5-5.1); Protein, Total 8.1 g/dL (6.0-8.3); Sodium 134 mmol/L (136-145)
[2021-02-07] MEDS ORDERED: Morphine 4 MG/ML VIAL ONE ×2 (15:08→17:27)
[2021-02-07] MEDS ORDERED: Ketorolac Tromethamine 30 MG/ML VIAL ONE (15:08)
[2021-02-07 15:55] LABS: CK (CPK) 41 U/L (29-168); Lipase 41 U/L (8-78)
[2021-02-07 16:24] LABS: Bilirubin Negative (Negative); Blood, Urine Negative (Negative); Clarity Turbid (Clear); Glucose, Urine (Dipstick) Normal (Negative); Ketone, Urine Negative (Negative); Leukocyte 500 Leu/uL (Negative); Nitrite Negative (Negative); Protein, Urine (Dipstick) Negative (Neg-Trace); RBC/HPF 0-3 HPF (0-3); Squamous Epithelial 0-3 HPF (0-3); Urobilinogen Normal mg/dL (Less than 2); WBC/HPF Greater than 50 HPF (0-3); pH, Urine 6.5 (5.0-9.0)
[2021-02-07 16:33] LABS: Bacteria/HPF 4+ HPF (None Seen); Yeast-Budding None Seen HPF (None Seen)
[2021-02-07] MEDS ORDERED: cefTRIAXone\\ROCEPHIN 1 GM VIAL ONE (17:27)
[2021-02-07] MEDS ORDERED: Ondansetron PF 4 MG/2 ML Vial ONE (17:37)
[2021-02-07] MEDS ORDERED: Lorazepam 2 MG/ML VIAL ONE (18:30)
[2021-02-07] MEDS ORDERED: HYDROcodone/Acetaminophen 5/325 mg Tablet ONE (20:39)
== END 2021-02-07 20:45 | disposition home or self-care (01) ==
LOC: ERS 12:48
DX: R07.89 Other chest pain (principal); Z87.891 Personal history of nicotine dependence; I10 Essential (primary) hypertension; Z79.899 Other long term (current) drug therapy
CPT/HCPCS: 36415; 71045; 71275; 74174; 80053; 81003; 81015; 82550; 82553; 83690; 83880; 84484; 85025; 85379; 93005; 94760; 96365; 96375; 96376; J0696; J1885; J2060; J2270; J2405; Q9967

== ENCOUNTER 2021-08-16 19:35 | Emergency (ER) | payer MEDICARE ==
[~2021-08-16 19:35] MED LIST changes: +Iopamidol 370 76% 100 ML VIAL ONE; -Iopamidol-370 76% 500 ML 1 ML ONE
[2021-08-16 20:29] LABS: #Basophils 0.1 thou/uL (0.0-0.2); #Eosinphils 0.1 thou/uL (0.0-0.7); #Lymphocytes 3.7 thou/uL (1.20-3.40); #Monocytes 1.7 thou/uL (0.11-0.59); #Neutrophils 11.4 thou/uL (1.40-6.50); %Basophils 0.4 % (0.0-1.0); %Eosinophils 0.8 % (0.0-10.0); %Lymphocytes 21.7 % (21.0-51.0); %Monocytes 10.2 % (0.0-10.0); %Neutrophils 66.9 % (42.0-75.0); Hemoglobin 17.6 g/dL (12.0-16.0); Mean Corpuscular Hemoglobin 36.5 pg (27.0-31.0); Platelet Count 299 thou/uL (130-400); RBC Distribution Width 12.1 % (11.5-14.5); Red Blood Cell (RBC) Count 4.83 mill/uL (4.20-5.40); White Blood Cell (WBC) Count 17.1 thou/uL (4.8-10.8)
[2021-08-16] MEDS ORDERED: Pantoprazole 40 MG VIAL ONE (20:34)
[2021-08-16] MEDS ORDERED: Morphine 4 MG/ML VIAL ONE ×2 (20:34→22:30)
[2021-08-16] MEDS ORDERED: Ondansetron PF 4 MG/2 ML Vial ONE (20:34)
[2021-08-16 20:47] LABS: ALT (SGPT) 19 U/L (8-55); AST (SGOT) 34 U/L (5-34); Albumin 3.9 g/dL (3.5-5.0); Alkaline Phosphatase 93 U/L (40-110); Anion Gap 17 mmol/L (10-20); BUN (Urea Nitrogen) 24 mg/dL (9.8-20.1); Bilirubin, Total 1.6 mg/dL (0.2-1.2); CK (CPK) 18 U/L (29-168); Calc. Creatinine Clearance 0 mL/min (70-130); Calcium 9.5 mg/dL (7.8-10.44); Carbon Dioxide 19 mmol/L (22-29); Globulin 3.9 g/dL (2.4-3.5); Glucose 116 mg/dL (70-105); Lipase 17 U/L (8-78); Potassium 3.6 mmol/L (3.5-5.1); Protein, Total 7.8 g/dL (6.0-8.3)
[2021-08-16 20:53] LABS: Bilirubin Small (Negative); Blood, Urine Negative (Negative); Glucose, Urine (Dipstick) Negative (Negative); Ketone, Urine Negative (Negative); Leukocyte Small (Negative); Nitrite Negative (Negative); Protein, Urine (Dipstick) Negative (Neg-Trace); Urobilinogen 0.2 mg/dL (Less than 2)
[2021-08-16 20:55] LABS: Clarity Clear (Clear); Specific Gravity, Urine 1.032 (1.002-1.036)
[2021-08-16 21:02] LABS: Bacteria/HPF 2+ HPF (None Seen); RBC/HPF 0-3 HPF (0-3); Squamous Epithelial 0-3 HPF (0-3)
[2021-08-16 21:40] LABS: Sodium 135 mmol/L (136-145)
[2021-08-16 22:40] LABS: Chloride 102 mmol/L (98-107)
== END 2021-08-16 22:36 | disposition home or self-care (01) ==
LOC: ERS 19:35
DX: K74.60 Unspecified cirrhosis of liver (principal); I10 Essential (primary) hypertension; Z87.891 Personal history of nicotine dependence; Z79.899 Other long term (current) drug therapy
CPT/HCPCS: 36415; 71045; 74177; 76705; 80053; 81003; 81015; 82550; 83690; 85025; 93005; 96374; 96375; 96376; C9113; J2270; J2405; Q9967

== ENCOUNTER 2023-02-11 12:21 | Observation (INO) | payer MEDICARE, OTHER ==
[~2023-02-11 12:21] MED LIST changes: -Iopamidol 370 76% 100 ML VIAL ONE; +Iopamidol-370 76% 500 ML MDV (1 ML CHARGE) ONE
[2023-02-11 12:46] LABS: #Basophils 0.1 thou/uL (0.0-0.2); #Monocytes 0.8 thou/uL (0.11-0.59); #Neutrophils 4.4 thou/uL (1.40-6.50); %Basophils 0.8 % (0.0-1.0); %Eosinophils 0.5 % (0.0-10.0); %Lymphocytes 17.1 % (21.0-51.0); %Monocytes 11.8 % (0.0-10.0); %Neutrophils 69.5 % (42.0-75.0); Hematocrit 42.6 % (36.0-47.0); Hemoglobin 15.4 g/dL (12.0-16.0); Mean Corpuscular HGB CONC 36.2 g/dL (32.0-36.0); Mean Corpuscular Hemoglobin 36.3 pg (27.0-31.0); Mean Corpuscular Volume 100.5 fl (78.0-98.0); Mean Platelet Volume 11.1 fL (7.4-10.4); Platelet Count 109 10x3/uL (130-400); RBC Distribution Width 12.1 % (11.5-14.5); Red Blood Cell (RBC) Count 4.24 mill/uL (4.20-5.40); White Blood Cell (WBC) Count 6.3 10x3/uL (4.8-10.8)
[2023-02-11 13:00] LABS: INR-International Normal Ratio 1.1; Prothrombin Time 15.1 sec (12.0-14.7)
[2023-02-11 13:01] LABS: PTT 29.8 sec (22.9-36.1)
[2023-02-11 13:11] LABS: ALT (SGPT) 39 U/L (8-55); AST (SGOT) 95 U/L (5-34); Albumin 4.3 g/dL (3.5-5.0); Alkaline Phosphatase 116 U/L (40-110); Anion Gap 17 mmol/L (10-20); BUN (Urea Nitrogen) 7 mg/dL (9.8-20.1); Bilirubin, Total 2.7 mg/dL (0.2-1.2); Calc. Creatinine Clearance 0 mL/min (70-130); Calcium 9.8 mg/dL (7.8-10.44); Carbon Dioxide 24 mmol/L (22-29); Chloride 99 mmol/L (98-107); Estimated GFR 71; Globulin 4.3 g/dL (2.4-3.5); Glucose 131 mg/dL (70-105); Potassium 3.4 mmol/L (3.5-5.1); Protein, Total 8.6 g/dL (6.0-8.3); Sodium 137 mmol/L (136-145)
[2023-02-11 13:20] LABS: Troponin I 0.029 ng/mL (< 0.028)
[2023-02-11] MEDS ORDERED: Dexamethasone 10 MG/ML VIAL ONE (13:23)
[2023-02-11] MEDS ORDERED: Ondansetron PF 4 MG/2 ML Vial ONE (13:32)
[2023-02-11] MEDS ORDERED: Ampicillin/Sulbactam 3 GM VIAL ONE (13:48)
[2023-02-11] MEDS ORDERED: Sodium Chloride 0.9% 100 ML ONE (13:48)
[2023-02-11] MEDS ORDERED: Metoclopramide HCl 10 MG/2 ML VIAL ONE (14:29)
[2023-02-11] MEDS ORDERED: FLU VACC QS2023-24(6MOS UP)/PF 60 MCG/0.5 ML SYRINGE IM ONE (17:00)
[2023-02-11] MEDS ORDERED: Acetaminophen 325 MG TAB PO PRN (17:12)
[2023-02-11] MEDS ORDERED: Lorazepam 1 MG TAB PO PRN (17:12)
[2023-02-11] MEDS ORDERED: Ondansetron PF 4 MG/2 ML Vial IVP PRN (17:12)
[2023-02-11] MEDS ORDERED: Lorazepam 2 MG/ML VIAL IM PRN (17:12)
[2023-02-11] MEDS ORDERED: HYDROcodone/Acetaminophen 5/325 mg Tablet PO PRN (17:12)
[2023-02-11] MEDS ORDERED: Gabapentin 300 MG CAP PO PRN (17:18)
[2023-02-11] MEDS ORDERED: traMADol HCl 50 MG TAB PO PRN (17:18)
[2023-02-11] MEDS ORDERED: Folic Acid 1 MG TAB PO SCH (17:30)
[2023-02-11] MEDS ORDERED: Multivit, Therapeutic 1 TAB PO SCH (17:30)
[2023-02-11] MEDS ORDERED: Thiamine HCl 200 MG/2 ML VIAL ONE (17:34)
[2023-02-11] MEDS ORDERED: Potassium Chloride 20 MEQ in Premix 1 BAG IVPB SCH (18:00)
[2023-02-11] MEDS ORDERED: Thiamine HCl 200 MG/2 ML VIAL SLOW IVP SCH (18:00)
[2023-02-11 18:55] VITALS: BMI 22.9
[2023-02-11] MEDS: Ampicillin/Sulbactam 3 GM in Sodium Chloride 0.9% 100 ML IVPB SCH (20:54)
[2023-02-11] MEDS: Famotidine/PF 20 mg/2ml Vial SLOW IVP SCH (20:55)
[2023-02-12] MEDS: Ampicillin/Sulbactam 3 GM in Sodium Chloride 0.9% 100 ML IVPB SCH ×3 (03:20→14:49)
[2023-02-12] MEDS: Ketorolac Tromethamine 30 MG/ML VIAL IVP PRN ×2 (05:15→10:57)
[2023-02-12] MEDS: Famotidine/PF 20 mg/2ml Vial SLOW IVP SCH (08:12)
[2023-02-12] MEDS ORDERED: Multivit, Therapeutic 1 TAB PO SCH (09:00)
[2023-02-12] MEDS ORDERED: Dexamethasone 4 mg/ml Vial SLOW IVP SCH (09:00)
[2023-02-12] MEDS ORDERED: Folic Acid 1 MG TAB PO SCH (09:00)
[2023-02-12 10:48] LABS: ALT (SGPT) 31 U/L (8-55); AST (SGOT) 65 U/L (5-34); Alkaline Phosphatase 94 U/L (40-110); Anion Gap 15 mmol/L (10-20); BUN (Urea Nitrogen) 16 mg/dL (9.8-20.1); Bilirubin, Total 2.1 mg/dL (0.2-1.2); Calc. Creatinine Clearance 75 mL/min (70-130); Calcium 9.4 mg/dL (7.8-10.44); Carbon Dioxide 26 mmol/L (22-29); Chloride 104 mmol/L (98-107); Estimated GFR 85; Globulin 3.5 g/dL (2.4-3.5); Glucose 115 mg/dL (70-105); Potassium 3.7 mmol/L (3.5-5.1); Protein, Total 7.5 g/dL (6.0-8.3); Sodium 141 mmol/L (136-145)
[2023-02-12 14:17] VITALS: BP 123/87
[2023-02-12 16:39] VITALS: TEMP 98.6
[2023-02-12] MEDS ORDERED: Lorazepam 1 MG TAB PO PRN (17:12)
[2023-02-13] MEDS ORDERED: Lorazepam 1 MG TAB PO PRN (17:12)
[2023-02-14] MEDS ORDERED: Lorazepam 0.5 MG TAB PO PRN (17:12)
[2023-02-14] MEDS ORDERED: Thiamine 100 MG TAB PO SCH (18:00)
== END 2023-02-12 18:30 | disposition home or self-care (01) ==
LOC: ERS 12:21 → ERHOLD 16:26 → INTOOBSV 16:26 → IMCU/EMU 18:45
PROVIDERS: ADMIT Internal Medicine; ATTEND Internal Medicine
DX: A41.9 Sepsis, unspecified organism (principal); J03.90 Acute tonsillitis, unspecified; E87.6 Hypokalemia; I10 Essential (primary) hypertension; F10.20 Alcohol dependence, uncomplicated; M16.11 Unilateral primary osteoarthritis, right hip; R47.89 Other speech disturbances; Z79.899 Other long term (current) drug therapy; Z96.641 Presence of right artificial hip joint
CPT/HCPCS: 36415; 36416; 70450; 70491; 70496; 70498; 71045; 80053; 83605; 84484; 85025; 85610; 85730; 87040; 87081; 87430; 93005; 94760; 96365; 96366; 96368; 96375; 96376; G0378; J0295; J1100; J1885; J2405; J2765; J3411; J3480; J3490; Q9967; S0028

== ENCOUNTER 2023-09-02 13:41 | Inpatient (IN) | payer MEDICARE ==
[2023-09-02 14:52] LABS: #Basophils 0.03 10x3/uL (0.0-0.2); %Basophils 0.4 % (0.0-1.0); %Eosinophils 0.5 % (0.0-10.0); %Lymphocytes 9.4 % (21.0-51.0); %Monocytes 16.5 % (0.0-10.0); %Neutrophils 72.8 % (42.0-75.0); Hematocrit 38.8 % (36.0-47.0); Hemoglobin 13.9 g/dL (12.0-16.0); Mean Corpuscular HGB CONC 35.8 g/dL (32.0-36.0); Mean Corpuscular Hemoglobin 36.8 pg (27.0-31.0); Mean Corpuscular Volume 102.6 fL (78.0-98.0); Mean Platelet Volume 11.2 fL (7.4-10.4); Platelet Count 108 10x3/uL (130-400); RBC Distribution Width 13.1 % (11.5-14.5); Red Blood Cell (RBC) Count 3.78 mill/uL (4.20-5.40)
[2023-09-02 14:59] LABS: INR-International Normal Ratio 1.2; PTT 29.2 sec (22.9-36.1); Prothrombin Time 15.1 sec (12.0-14.7)
[2023-09-02 15:00] LABS: ALT (SGPT) 20 U/L (8-55); AST (SGOT) 54 U/L (5-34); Albumin 3.5 g/dL (3.5-5.0); Alkaline Phosphatase 86 U/L (40-110); Anion Gap 15 mmol/L (10-20); BUN (Urea Nitrogen) 14 mg/dL (9.8-20.1); Bilirubin, Total 2.4 mg/dL (0.2-1.2); Calc. Creatinine Clearance 0 mL/min (70-130); Calcium 9.5 mg/dL (7.8-10.44); Carbon Dioxide 21 mmol/L (22-29); Chloride 99 mmol/L (98-107); Estimated GFR 34; Globulin 3.2 g/dL (2.4-3.5); Glucose 91 mg/dL (70-105); Lipase 33 U/L (8-78); Magnesium 1.9 mg/dL (1.6-2.6); Potassium 3.1 mmol/L (3.5-5.1); Protein, Total 6.7 g/dL (6.0-8.3); Sodium 132 mmol/L (136-145)
[2023-09-02 15:09] LABS: Macrocytosis SLIGHT = 6-15 cells HPF (0-5); Platelet Adequacy Comment Platelets Decreased; Polychromasia SLIGHT = 2-3 cells HPF (0-2)
[2023-09-02 15:17] LABS: Critical Call Chem Troponin I NUR.JLS2@1515; Troponin I 0.316 ng/mL (< 0.028)
[2023-09-02] MEDS ORDERED: Piperacillin/Tazobactam 3.375 GM VIAL ONE (15:29)
[2023-09-02] MEDS ORDERED: Sodium Chloride 0.9% 100 ML ONE (15:29)
[2023-09-02] MEDS ORDERED: Magnesium 2 GM/50 ML BAG (IN WATER) ONE (15:29)
[2023-09-02] MEDS ORDERED: Aspirin Chewable 81 MG TAB ONE (15:29)
[2023-09-02] MEDS ORDERED: Acetaminophen 325 MG TAB PO PRN (16:14)
[2023-09-02] MEDS ORDERED: Acetaminophen 650 MG Suppository PR PRN (16:14)
[2023-09-02 16:53] VITALS: BMI 26.0
[2023-09-02] MEDS: traMADol HCl 50 MG TAB PO PRN (17:19)
[2023-09-02] MEDS: cefTRIAXone\\ROCEPHIN 2 GM in Sodium Chloride 0.9% 100 ML IVPB SCH (17:20)
[2023-09-02] MEDS: Sodium Chloride 0.9% 1,000 ML IV SCH (17:21)
[2023-09-02] MEDS: NS 0.9% w/ 40 MEQ KCL 1,000 ML IV SCH (17:21)
[2023-09-02] MEDS: Potassium Chloride 20 MEQ in Premix 1 BAG IVPB SCH (17:22)
[2023-09-02 19:19] LABS: Critical Call Chem Troponin I RESULT DECREASING; Troponin I 0.248 ng/mL (< 0.028)
[2023-09-02] MEDS: Doxycycline 100 MG in Sodium Chloride 0.9% 100 ML IVPB SCH (20:36)
[2023-09-02 22:35] LABS: Critical Call Chem Troponin I RESULT DECREASING; Troponin I 0.203 ng/mL (< 0.028)
[2023-09-03 06:09] LABS: #Basophils 0.05 10x3/uL (0.0-0.2); %Basophils 0.9 % (0.0-1.0); %Eosinophils 2.7 % (0.0-10.0); %Lymphocytes 21.9 % (21.0-51.0); %Monocytes 16.3 % (0.0-10.0); Hematocrit 35.7 % (36.0-47.0); Hemoglobin 12.2 g/dL (12.0-16.0); Mean Corpuscular HGB CONC 34.2 g/dL (32.0-36.0); Mean Corpuscular Hemoglobin 36.9 pg (27.0-31.0); Mean Corpuscular Volume 107.9 fL (78.0-98.0); Platelet Count 81 10x3/uL (130-400); RBC Distribution Width 13.7 % (11.5-14.5); Red Blood Cell (RBC) Count 3.31 mill/uL (4.20-5.40)
[2023-09-03 06:28] LABS: Anion Gap 15 mmol/L (10-20); BUN (Urea Nitrogen) 13 mg/dL (9.8-20.1); Calc. Creatinine Clearance 82 mL/min (70-130); Calcium 9.1 mg/dL (7.8-10.44); Carbon Dioxide 17 mmol/L (22-29); Chloride 110 mmol/L (98-107); Estimated GFR 81; Glucose 74 mg/dL (70-105); Magnesium 1.7 mg/dL (1.6-2.6); Phosphorus 2.7 mg/dL (2.3-4.7); Potassium 3.8 mmol/L (3.5-5.1); Sodium 138 mmol/L (136-145)
[2023-09-03] MEDS: Gabapentin 300 MG CAP PO SCH (08:43)
[2023-09-03] MEDS: Enoxaparin 40 MG (0.4 mL) SYRINGE SC SCH (08:43)
[2023-09-03] MEDS: Sodium Chloride 0.9% 1,000 ML IV SCH (13:11)
[2023-09-03 14:18] VITALS: BMI 26.0
[2023-09-04] MEDS ORDERED: Ondansetron ODT 4 MG TAB PO PRN (04:22)
[2023-09-04] MEDS: Ondansetron PF 4 MG/2 ML Vial IVP PRN (04:31)
[2023-09-04 06:16] LABS: #Basophils 0.04 10x3/uL (0.0-0.2); %Basophils 0.7 % (0.0-1.0); %Eosinophils 2.3 % (0.0-10.0); %Lymphocytes 19.8 % (21.0-51.0); %Monocytes 13.3 % (0.0-10.0); %Neutrophils 63.6 % (42.0-75.0); Hematocrit 34.7 % (36.0-47.0); Hemoglobin 12.1 g/dL (12.0-16.0); Mean Corpuscular HGB CONC 34.9 g/dL (32.0-36.0); Mean Corpuscular Hemoglobin 37.2 pg (27.0-31.0); Mean Corpuscular Volume 106.8 fL (78.0-98.0); Mean Platelet Volume 11.5 fL (7.4-10.4); Platelet Count 79 10x3/uL (130-400); RBC Distribution Width 13.3 % (11.5-14.5); Red Blood Cell (RBC) Count 3.25 mill/uL (4.20-5.40)
[2023-09-04 06:30] LABS: Cardiac Risk 1.9 (Less than 4.5)
[2023-09-04] MEDS: Thiamine 100 MG TAB PO SCH (08:12)
[2023-09-04] MEDS: Folic Acid 1 MG TAB PO SCH (08:13)
[2023-09-04 08:45] VITALS: BP 174/88; TEMP 97.8
== END 2023-09-04 11:15 | disposition home or self-care (01) | DRG 682 ==
LOC: SUATTDRO 13:41 → ERS 13:41 → 2SW 16:35
PROVIDERS: ADMIT Family Medicine; ATTEND Internal Medicine
DX: N17.9 Acute kidney failure, unspecified (principal); I21.A1 Myocardial infarction type 2; R57.1 Hypovolemic shock; G89.29 Other chronic pain; R94.31 Abnormal electrocardiogram [ECG] [EKG]; I10 Essential (primary) hypertension; E87.6 Hypokalemia; E86.0 Dehydration; F32.A Depression, unspecified; F10.10 Alcohol abuse, uncomplicated; D69.59 Other secondary thrombocytopenia; R47.1 Dysarthria and anarthria; Z79.899 Other long term (current) drug therapy; Z87.891 Personal history of nicotine dependence
CPT/HCPCS: 36415; 36416; 70450; 70496; 70498; 70551; 71045; 71046; 80048; 80053; 80061; 83605; 83690; 83735; 83880; 84100; 84443; 84484; 85025; 85610; 85730; 87040; 93005; 93010; 93306; 96361; 96365; J0696; J1650; J2405; J2543; J3475; J3480; J3490; J7050; Q9967